=== PATIENT | male | born 1970 | race Two or more races ===

== ENCOUNTER 2018-01-31 19:31 | Emergency (ER) | payer OTHER ==
[~2018-01-31] VITALS: Ht 170.2 cm; Wt 79.4 kg
[2018-01-31 19:31] VITALS: BP 112/51
[2018-01-31] MEDS ORDERED: TDAP [DIPH/PERTUSSIS/TET] 0.5 ML VIAL IM ONE ×2 (20:00→20:25)
== END 2018-01-31 20:38 | disposition home or self-care (01) ==
LOC: ER 19:36
DX: S60.453A Superficial foreign body of left middle finger, initial encounter (principal); X58.XXXA Exposure to other specified factors, initial encounter; Y93.89 Activity, other specified; Y92.89 Other specified places as the place of occurrence of the external cause; Y99.8 Other external cause status
CPT/HCPCS: 90471; 90715; 99283; A4606; Z7610